=== PATIENT | female | born 1995 ===

== ENCOUNTER → 2019-04-02 | Outpatient (REF) | payer SELFPAY ==
[2019-04-02 21:42] LABS: CHLAMYDIA DNA AMPLIFICATION NEGATIVE (NEGATIVE); GC DNA AMPLIFICATION NEGATIVE (NEGATIVE)
== END ==
LOC: M SFHCLUC 09:11
PROVIDERS: ATTEND Nurse Practitioner Family
DX: N39.9 Disorder of urinary system, unspecified (principal)